=== PATIENT | female | born 2000 | race Caucasian/White ===

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

== ENCOUNTER → 2023-05-02 | Outpatient (CLI) | payer BC ==
[~2023-05-02] MED LIST: FLAGYL500 MG PO
== END ==
LOC: COL.RAD 07:30
DX: M54.59 Other low back pain (principal)